=== PATIENT | female | born 1985 | race Caucasian/White ===

== ENCOUNTER 2021-03-09 19:55 | Emergency (ER) | payer OTHER, SELFPAY ==
[2021-03-09 20:02] VITALS: BP 153/89; PULSE 106; RESP 20; TEMP 37; O2SAT 100
--- NOTE | 2021-03-09 20:04 | ED.SKABFB ---
HPI - Skin/Abscess/Foreign Bdy General Chief complaint: Skin/Abscess/Foreign Body Stated complaint: nose ring infection Time Seen by Provider: 03/09/21 20:05 Source: patient, RN notes reviewed and old records reviewed Mode of arrival: ambulatory Limitations: no limitations History of Present Illness HPI narrative: 35-year-old female presents to the [facility] with complaints of a nose ring infection patient states that she has had the ring for approximately 9 months, infection started 2 days ago has been washing it with Dial soap and putting Neosporin on several times a day. Denies fevers. States she just got over a sinus infection, was on doxycycline. Related Data Home Medications Medication Instructions Recorded Confirmed escitalopram oxalate 10 mg PO DAILY 03/09/21 03/09/21 Allergies Allergy/AdvReac Type Severity Reaction Status Date / Time clindamycin Allergy Intermediate Rash Verified 03/09/21 20:10 cephalexin Allergy Mild Rash Verified 03/09/21 20:09 Penicillins Allergy Mild Rash Unverified 03/09/21 20:09 Review of Systems Review of Systems: All systems reviewed & are unremarkable except as noted in HPI and below Constitutional: Constitutional: Reports no additional constitutional complaints, Denies chills and Denies fever(s) Eyes: Eyes: Reports no additional eye complaints ENT: Reports system reviewed and no additional complaints, except as documented Cardiovascular: Cardiovascular: Reports no additional cardiovascular complaints Respiratory: Respiratory: Reports no additional respiratory complaints Musculoskeletal: Musculoskeletal: Reports no additional musculoskeletal complaints Integumentary/Breasts: Skin/Breast: Reports as per HPI Comments: Redness inflammation left nare outer aspect Neurologic: Reports system reviewed and no additional complaints, except as documented Psychiatric: Psychiatric: Reports no additional psychiatric complaints Allergic/Immunologic: Allergic/Immunologic: Reports no additional allergic/immunologic complaints [facility] Past Medical History Medical History (Updated 03/09/21 @ 20:17 by Lydia Reinoso) Depression Surgical History Surgical History (Updated 03/09/21 @ 20:15 by Lydia Reinoso) No pertinent past surgical history Social History Social History (Updated 03/09/21 @ 20:15 by Lydia Reinoso) Living arrangements: with family Gender identity (if verbalized by the patient): Female Comments At the time of my signature, I reviewed and agree with the nursing past medical, surgical, social, and family history. There is no relevant family history pertinent to the patient complaint. Exam Const: General: healthy appearing, no acute distress and alert Nutritional Appearance: well nourished Orientation/consciousness: patient oriented x3 Limitations: no limitations HENMT: Head: normal to inspection Ears: external ears normal General nose exam: Normal external nose present Nose image: 1. Nose ring with increased surrounding erythema, induration without fluctuance. No drainage noted. Warm to touch. Mild swelling noted Face and sinus: normal facial exam Eyes: Pupils: Equal, round and reactive pupils present Neck: Neck: normal visual inspection, no lymphadenopathy and no meningeal signs Chest: Chest palpation & inspection: normal inspection of the chest Resp: Effort & Inspection: normal respiratory effort and no use of accessory muscles Auscultation: clear to auscultation bilaterally Cardio: Rate: regular rate Back/Spine/Pelvis: Back: no CVA tenderness Skin: General skin exam: normal color Rashes: no rashes Other: Erythema left lateral nose Neuro: General: patient oriented x3, moves all extremities, no meningeal signs and no focal motor deficits Speech: normal speech Gait exam (Neuro): Normal gait present Extrem: General: normal to inspection Psych: Appearance: grossly normal and well kempt Mental Status: mental status grossly normal
[2021-03-09 20:10] VITALS: BP 153/89; PULSE 106; RESP 20; TEMP 37; O2SAT 100
== END 2021-03-09 20:21 | disposition home or self-care (01) ==
PROVIDERS: Emergency Provider Nurse Practitioner
DX: J34.0 Abscess, furuncle and carbuncle of nose (principal); F32.A Depression, unspecified
CPT/HCPCS: 99203; G0463